=== PATIENT | female | born 1945 | race Two or more races ===

== ENCOUNTER 2023-05-04 20:18 | Inpatient (IN) | payer MEDICARE, OTHER ==
[~2023-05-04] VITALS: Ht 154.9 cm; Wt 62.7 kg
[2023-05-04 21:21] VITALS: O2SAT 97
[2023-05-04 21:22] LABS: Basophils # (auto) 0 10 ^3/uL (0-0.2); Basophils % (auto) 0.4 % (0.0-2.0); Eosinophils # (auto) 0.1 10 ^3/uL (0-0.8); Eosinophils % (auto) 1.4 % (0.0-7.0); Hematocrit 39.9 % (36.0-46.0); Hemoglobin 13.3 g/dL (12.2-16.2); Lymphocytes # (auto) 1.6 10 ^3/uL (0.4-5.4); Lymphocytes % (auto) 16.6 % (10.0-50.0); Mean Corpuscular Hemoglobin 31.2 pg (28.0-32.0); Mean Corpuscular Hgb Conc. 33.4 g/dL (32.0-36.0); Mean Corpuscular Volume 93.3 fL (80.0-100.0); Monocytes # (auto) 0.3 10 ^3/uL (0-1.3); Monocytes % (auto) 3.4 % (0.0-12.0); Neutrophils # (auto) 7.8 10 ^3/uL (1.6-8.6); Neutrophils % (auto) 78.2 % (37.0-80.0); Nucleated Red Blood Cells % 0.1 %; Red Blood Cells 4.27 10^6/uL (4.0-5.20); Red Cell Distribution Width 13.7 % (11.8-14.3); White Blood Cell 9.9 10^3/uL (4.4-10.8)
[2023-05-04 21:26] LABS: Acetaminophen < 2.0 UG/ML (10.0-20.0); Alanine Aminotransferase 47 U/L (7-40); Albumin 3.6 g/dL (3.2-4.8); Alkaline Phosphatase 86 U/L (46-116); Anion Gap 6 (5-15); Aspartate Aminotransferase 34 U/L (13-40); Blood Alcohol 4.8 mg/dL (<10); Blood Urea Nitrogen 24 mg/dL (9-23); Calcium 8.5 mg/dL (8.7-10.4); Carbon Dioxide 26 mmol/L (20-30); Chloride 109 mmol/L (98-107); Glucose 161 mg/dL (74-106); Potassium 3.5 mmol/L (3.5-5.1); Sodium 141 mmol/L (136-145)
[2023-05-04 21:27] LABS: Bilirubin, Total 0.5 mg/dL (0.2-1.0); Total Protein 6.3 g/dL (5.7-8.2)
[2023-05-04] MEDS ORDERED: SODIUM CHLORIDE 0.9% 1,000 ML IV ONE (21:45)
[2023-05-04] MEDS ORDERED: VANCOMYCIN PER PHARMACY 0 MG IV SCH (21:45)
[2023-05-04 21:51] LABS: Salicylate < 3.0 mg/dL (2.8-20.0)
[2023-05-04] MEDS ORDERED: VANCOMYCIN 1GM/250ML 250 ML IV ONE (22:00)
[2023-05-04 22:42] LABS: INR 1.12 (0.9-1.15); Partial Thromboplastin Time 29.4 SEC (24.5-34.5); Prothrombin Time 11.7 sec (9.3-11.8)
[2023-05-04 23:59] LABS: Amphetamine Screen, Urine Neg (NEGATIVE); Barbiturate Scree,Urine Neg (NEGATIVE); Benzodiazephine Screen, Urine Neg (NEGATIVE); Cannabinoid Screen, Urine Neg (NEGATIVE); Cocaine Screen, Urine Neg (NEGATIVE); Opiate Scree,Urine Neg (NEGATIVE); Phencyclidine Screen, Urine Neg (NEGATIVE)
[2023-05-05] MEDS ORDERED: PIPERACILLIN-TAZOB 3.375GM 100 ML IV ONE (00:28)
[2023-05-05 00:41] LABS: Urine Bacteria FEW /hpf (None Seen); Urine Blood Negative /uL (Negative); Urine Clarity HAZY (Clear); Urine Color Yellow (Yellow); Urine Hyaline Cast FEW /lpf (0 - 2); Urine Mucus FEW (None Seen); Urine Protein, UAD 1+ (Negative); Urine Urobilinogen Normal (Negative); Urine WBC 166 /hpf (0 - 5); Urine WBC Clumps PRESENT /hpf (None Seen); Urine pH 5.5 (5.0-8.0)
[2023-05-05] MEDS ORDERED: ALBUMIN 25% 100 ML IV ONE ×2 (03:00)
[2023-05-05] MEDS ORDERED: SODIUM CHLORIDE 0.9% 2,000 ML IV ONE (03:00)
[2023-05-05] MEDS ORDERED: SODIUM CHLORIDE 0.9% 1,000 ML IV ONE (03:00)
[2023-05-05] MEDS ORDERED: ACETAMINOPHEN 325 MG TAB PO PRN (04:00)
[2023-05-05] MEDS ORDERED: DOCUSATE SOD 100 MG CAP PO PRN (04:00)
[2023-05-05] MEDS ORDERED: HYDROcodone-ACET 5/325MG TAB PO PRN (04:00)
[2023-05-05] MEDS ORDERED: ONDANSETRON HCL 4 MG/2 ML VIAL IV PRN (04:00)
[2023-05-05] MEDS ORDERED: NITROGLYCERIN 0.4 MG SL TAB SL PRN (06:15)
[2023-05-05] MEDS ORDERED: MORPHINE SULFATE INJ 2 MG/ml SYRG IV PRN (06:15)
[2023-05-05 09:09] VITALS: PULSE 67; RESP 20; O2SAT 96
[2023-05-05] MEDS: HEPARIN SODIUM (PORCINE) 5000 UNITS/ML 1ML VIAL SC SCH ×2 (10:54→22:16)
[2023-05-05] MEDS ORDERED: cefTRIAXone 1GM/50ML D5W 50 ML IV ONE (12:00)
[2023-05-05] MEDS ORDERED: LORazepam 2MG/ML-1ML VIAL ONE (19:10)
[2023-05-05] MEDS ORDERED: LORazepam 2MG/ML-1ML VIAL IM ONE (19:15)
[2023-05-05 19:34] VITALS: PULSE 84; RESP 11; O2SAT 91
[2023-05-05] MEDS ORDERED: PIPERACILLIN-TAZOB 3.375GM 100 ML IV SCH (23:00)
[2023-05-06] MEDS ORDERED: LORazepam 2MG/ML-1ML VIAL IV PRN (03:00)
[2023-05-06 06:16] LABS: Basophils # (auto) 0 10 ^3/uL (0-0.2); Basophils % (auto) 0.2 % (0.0-2.0); Eosinophils # (auto) 0.2 10 ^3/uL (0-0.8); Eosinophils % (auto) 1.9 % (0.0-7.0); Hematocrit 37.2 % (36.0-46.0); Hemoglobin 12.5 g/dL (12.2-16.2); Lymphocytes # (auto) 1.7 10 ^3/uL (0.4-5.4); Lymphocytes % (auto) 17.8 % (10.0-50.0); Mean Corpuscular Hemoglobin 31.1 pg (28.0-32.0); Mean Corpuscular Hgb Conc. 33.5 g/dL (32.0-36.0); Mean Corpuscular Volume 92.9 fL (80.0-100.0); Monocytes # (auto) 0.5 10 ^3/uL (0-1.3); Monocytes % (auto) 5.7 % (0.0-12.0); Neutrophils # (auto) 6.9 10 ^3/uL (1.6-8.6); Neutrophils % (auto) 74.4 % (37.0-80.0); Red Blood Cells 4.01 10^6/uL (4.0-5.20); Red Cell Distribution Width 13.6 % (11.8-14.3); White Blood Cell 9.3 10^3/uL (4.4-10.8)
[2023-05-06 07:23] LABS: Alanine Aminotransferase 38 U/L (7-40); Alkaline Phosphatase 81 U/L (46-116); Anion Gap 6 (5-15); Aspartate Aminotransferase 31 U/L (13-40); BUN/Creatinine Ratio 14.3 (10.0-20.0); Bilirubin, Total 0.6 mg/dL (0.2-1.0); Blood Urea Nitrogen 16 mg/dL (9-23); Calcium 8.9 mg/dL (8.7-10.4); Carbon Dioxide 27 mmol/L (20-30); Chloride 108 mmol/L (98-107); Glucose 72 mg/dL (74-106); Potassium 3.3 mmol/L (3.5-5.1); Sodium 141 mmol/L (136-145); Total Protein 6.7 g/dL (5.7-8.2)
[2023-05-06 07:30] VITALS: RESP 20; O2SAT 95
[2023-05-06] MEDS ORDERED: POTASSIUM CHL 20 Meq TABLET PO ONE (08:30)
[2023-05-06] MEDS: cefTRIAXone 1GM/50ML D5W 50 ML IV SCH (09:00)
[2023-05-06] MEDS: HEPARIN SODIUM (PORCINE) 5000 UNITS/ML 1ML VIAL SC SCH ×2 (10:27→22:18)
[2023-05-06 15:15] VITALS: BP 155/95; PULSE 82; RESP 18; TEMP 98.1
[2023-05-06 22:00] VITALS: BP 114/55; PULSE 70; RESP 16; TEMP 97.5; O2SAT 94
[2023-05-06] MEDS: DONEPEZIL HYDROCHLORIDE 5 MG TAB PO SCH (22:00)
[2023-05-07 05:00] VITALS: BP 103/45; PULSE 72; RESP 16; TEMP 97.8; O2SAT 95
[2023-05-07 09:00] VITALS: BP 99/66; PULSE 81; RESP 18; TEMP 98; O2SAT 94
[2023-05-07] MEDS: cefTRIAXone 1GM/50ML D5W 50 ML IV SCH (09:11)
[2023-05-07] MEDS: HEPARIN SODIUM (PORCINE) 5000 UNITS/ML 1ML VIAL SC SCH ×2 (09:16→22:04)
[2023-05-07 13:00] VITALS: BP 140/71; PULSE 71; RESP 18; TEMP 98.1; O2SAT 96
[2023-05-07 17:00] VITALS: BP 143/69; PULSE 79; RESP 16; TEMP 98.3; O2SAT 93
[2023-05-07] MEDS ORDERED: POTASSIUM CHL 20 Meq TABLET PO ONE (21:30)
[2023-05-07] MEDS: DONEPEZIL HYDROCHLORIDE 5 MG TAB PO SCH (22:03)
[2023-05-07] MEDS: ATORVASTATIN 20 MG TAB PO SCH (22:04)
[2023-05-07] MEDS: SODIUM CHLORIDE 0.9% 1,000 ML IV SCH (22:05)
[2023-05-07 22:59] VITALS: BP 124/79; PULSE 76; RESP 16; TEMP 97.9; O2SAT 93
[2023-05-08 04:51] VITALS: BP 132/76; PULSE 83; RESP 18; TEMP 97.8; O2SAT 93
[2023-05-08 06:24] LABS: Basophils # (auto) 0 10 ^3/uL (0-0.2); Basophils % (auto) 0.3 % (0.0-2.0); Eosinophils # (auto) 0.2 10 ^3/uL (0-0.8); Eosinophils % (auto) 2.5 % (0.0-7.0); Hemoglobin 13.1 g/dL (12.2-16.2); Lymphocytes # (auto) 1.3 10 ^3/uL (0.4-5.4); Lymphocytes % (auto) 14.6 % (10.0-50.0); Mean Corpuscular Hemoglobin 31.5 pg (28.0-32.0); Mean Corpuscular Hgb Conc. 34.4 g/dL (32.0-36.0); Mean Corpuscular Volume 91.6 fL (80.0-100.0); Monocytes # (auto) 0.4 10 ^3/uL (0-1.3); Monocytes % (auto) 4.8 % (0.0-12.0); Neutrophils # (auto) 6.8 10 ^3/uL (1.6-8.6); Neutrophils % (auto) 77.8 % (37.0-80.0); Red Blood Cells 4.14 10^6/uL (4.0-5.20); White Blood Cell 8.8 10^3/uL (4.4-10.8)
[2023-05-08 06:26] LABS: Chloride 108 mmol/L (98-107); Potassium 3.8 mmol/L (3.5-5.1); Sodium 141 mmol/L (136-145)
[2023-05-08 06:27] LABS: Anion Gap 8 (5-15); Carbon Dioxide 25 mmol/L (20-30)
[2023-05-08 06:32] LABS: Blood Urea Nitrogen 19 mg/dL (9-23); Glucose 73 mg/dL (74-106); Triglycerides 117 mg/dL (< 150)
[2023-05-08 06:33] LABS: LDL Cholesterol 177 mg/dL (< 100)
[2023-05-08 06:35] LABS: Cholesterol 241 mg/dL (< 200); HDL Cholesterol 58 mg/dL (40-59)
[2023-05-08 06:51] LABS: Urine Bacteria NONE SEEN /hpf (None Seen); Urine Blood TRACE /uL (Negative); Urine Clarity Clear (Clear); Urine Color Yellow (Yellow); Urine Hyaline Cast FEW /lpf (0 - 2); Urine Mucus FEW (None Seen); Urine Protein, UAD 1+ (Negative); Urine Specific Gravity 1.023 (1.001-1.035); Urine Urobilinogen Normal (Negative); Urine WBC 7 /hpf (0 - 5); Urine pH 5.5 (5.0-8.0)
[2023-05-08 09:00] VITALS: BP 120/75; PULSE 79; RESP 16; TEMP 97.4; O2SAT 94
[2023-05-08] MEDS: cefTRIAXone 1GM/50ML D5W 50 ML IV SCH (09:24)
[2023-05-08] MEDS: HEPARIN SODIUM (PORCINE) 5000 UNITS/ML 1ML VIAL SC SCH ×2 (09:31→23:31)
[2023-05-08 13:00] VITALS: BP 141/81; PULSE 83; RESP 19; TEMP 97.4; O2SAT 94
[2023-05-08] MEDS: LEVOTHYROXINE SODIUM 50 MCG TAB PO SCH (13:30)
[2023-05-08 17:00] VITALS: BP 150/79; PULSE 84; RESP 16; TEMP 97.5; O2SAT 94
[2023-05-08] MEDS: SODIUM CHLORIDE 0.9% 1,000 ML IV SCH (17:30)
[2023-05-08] MEDS ORDERED: LORazepam 2MG/ML-1ML VIAL IV PRN (20:30)
[2023-05-08 21:45] VITALS: BP 124/75; PULSE 76; RESP 19; TEMP 98.2; O2SAT 91
[2023-05-08] MEDS: DONEPEZIL HYDROCHLORIDE 5 MG TAB PO SCH (21:51)
[2023-05-08] MEDS: ATORVASTATIN 20 MG TAB PO SCH (21:51)
[2023-05-08 22:22] LABS: Folate (Folic Acid) 7.98 ng/mL (>5.38)
[2023-05-09 04:31] VITALS: BP 148/68; PULSE 75; RESP 18; TEMP 98.6; O2SAT 98
[2023-05-09 06:10] LABS: Anion Gap 9 (5-15); Carbon Dioxide 24 mmol/L (20-30); Chloride 107 mmol/L (98-107); Potassium 3.8 mmol/L (3.5-5.1); Sodium 140 mmol/L (136-145)
[2023-05-09 06:12] LABS: Calcium 9.1 mg/dL (8.5-10.1)
[2023-05-09 06:16] LABS: Blood Urea Nitrogen 18 mg/dL (9-23); Glucose 93 mg/dL (74-106)
[2023-05-09] MEDS: LEVOTHYROXINE SODIUM 50 MCG TAB PO SCH (06:21)
[2023-05-09 09:00] VITALS: BP 136/90; PULSE 69; RESP 18; TEMP 97.5; O2SAT 96
[2023-05-09] MEDS: cefTRIAXone 1GM/50ML D5W 50 ML IV SCH (09:17)
[2023-05-09] MEDS: LISINOPRIL 5 MG TAB PO SCH (09:18)
[2023-05-09] MEDS: HEPARIN SODIUM (PORCINE) 5000 UNITS/ML 1ML VIAL SC SCH ×2 (09:30→21:03)
[2023-05-09 13:00] VITALS: BP 141/90; PULSE 78; RESP 14; TEMP 97.8; O2SAT 95
[2023-05-09] MEDS: SODIUM CHLORIDE 0.9% 1,000 ML IV SCH (13:04)
[2023-05-09 17:00] VITALS: BP 158/77; PULSE 107; RESP 18; TEMP 98; O2SAT 92
[2023-05-09] MEDS: DONEPEZIL HYDROCHLORIDE 5 MG TAB PO SCH (21:01)
[2023-05-09] MEDS: ATORVASTATIN 20 MG TAB PO SCH (21:01)
[2023-05-09 22:00] VITALS: BP 128/76; PULSE 68; RESP 18; TEMP 97.3; O2SAT 96
[2023-05-10 05:00] VITALS: BP 152/89; PULSE 68; RESP 19; TEMP 97.2; O2SAT 95
[2023-05-10] MEDS: LEVOTHYROXINE SODIUM 50 MCG TAB PO SCH (06:04)
[2023-05-10 08:00] VITALS: BP 147/99; PULSE 73; RESP 16; TEMP 98
[2023-05-10 09:00] VITALS: BP 147/99; PULSE 73; RESP 16; TEMP 98; O2SAT 96
[2023-05-10] MEDS: SODIUM CHLORIDE 0.9% 1,000 ML IV SCH (09:30)
[2023-05-10] MEDS: cefTRIAXone 1GM/50ML D5W 50 ML IV SCH (10:09)
[2023-05-10] MEDS: LISINOPRIL 5 MG TAB PO SCH (10:11)
[2023-05-10] MEDS: HEPARIN SODIUM (PORCINE) 5000 UNITS/ML 1ML VIAL SC SCH ×2 (10:15→22:00)
[2023-05-10 13:00] VITALS: BP 155/102; PULSE 68; RESP 16; TEMP 98; O2SAT 93
[2023-05-10 17:00] VITALS: BP 149/89; PULSE 76; RESP 16; TEMP 98.9; O2SAT 95
[2023-05-10] MEDS: DONEPEZIL HYDROCHLORIDE 5 MG TAB PO SCH (21:58)
[2023-05-10] MEDS: ATORVASTATIN 20 MG TAB PO SCH (21:58)
[2023-05-10 22:00] VITALS: BP 157/94; PULSE 76; RESP 19; TEMP 97.6; O2SAT 95
[2023-05-11 05:11] VITALS: BP 134/84; PULSE 73; RESP 17; TEMP 97.5; O2SAT 94
[2023-05-11] MEDS: SODIUM CHLORIDE 0.9% 1,000 ML IV SCH (05:30)
[2023-05-11] MEDS: LEVOTHYROXINE SODIUM 50 MCG TAB PO SCH (07:00)
[2023-05-11 08:00] VITALS: RESP 16; O2SAT 95
[2023-05-11] MEDS: cefTRIAXone 1GM/50ML D5W 50 ML IV SCH (09:00)
[2023-05-11] MEDS: LISINOPRIL 5 MG TAB PO SCH (10:10)
[2023-05-11] MEDS: HEPARIN SODIUM (PORCINE) 5000 UNITS/ML 1ML VIAL SC SCH (10:14)
[2023-05-11 10:33] VITALS: BP 153/80; PULSE 72; RESP 18; TEMP 97.6; O2SAT 95
[2023-05-11 12:59] VITALS: BP 156/87; PULSE 74; RESP 18; TEMP 97.8; O2SAT 95
[2023-05-11] MEDS ORDERED: DONE10TA9 PO (14:40)
[2023-05-11] MEDS ORDERED: CEPH500C PO (14:40)
[2023-05-11] MEDS ORDERED: LISI-275 PO (14:40)
[2023-05-11] MEDS ORDERED: LEV50T PO (14:40)
[2023-05-11] MEDS ORDERED: ATOR10TA52 PO (14:40)
[2023-05-11 15:18] VITALS: BP 156/87; PULSE 74; RESP 18; TEMP 97.8; O2SAT 95
[2023-05-11 17:30] VITALS: BP 154/80; PULSE 83; RESP 19; TEMP 97.5; O2SAT 95
[2023-05-12] MEDS ORDERED: LISINOPRIL 5 MG TAB PO SCH (10:00)
== END 2023-05-11 17:19 | disposition home or self-care (01) | DRG 71 ==
LOC: EDBD 20:18 → ER 20:18 → TELE 05-05 06:07 → TELE-EAST 05-06 15:11 → EAST 05-06 17:50
PROVIDERS: ADMIT Nurse Practitioner Family; ATTEND Family Medicine
DX: G93.41 Metabolic encephalopathy (principal); N17.9 Acute kidney failure, unspecified; N39.0 Urinary tract infection, site not specified; R57.9 Shock, unspecified; F03.90 Unspecified dementia, unspecified severity, without behavioral disturbance, psychotic disturbance, mood disturbance, and anxiety; E87.6 Hypokalemia; L08.9 Local infection of the skin and subcutaneous tissue, unspecified; R73.9 Hyperglycemia, unspecified; E78.5 Hyperlipidemia, unspecified; B96.20 Unspecified Escherichia coli [E. coli] as the cause of diseases classified elsewhere; R26.2 Difficulty in walking, not elsewhere classified; R68.0 Hypothermia, not associated with low environmental temperature; E03.9 Hypothyroidism, unspecified; I10 Essential (primary) hypertension; Z79.899 Other long term (current) drug therapy; Z90.710 Acquired absence of both cervix and uterus
CPT/HCPCS: 36415; 36600; 70450; 70551; 71045; 80048; 80053; 80061; 80202; 80307; 80320; 80329; 81001; 82553; 82607; 82746; 82805; 83036; 83605; 83735; 83880; 84443; 84450; 84484; 85025; 85610; 85730; 87040; 87086; 87088; 87186; 93005; 93306; 95819; 97110; 97116; 97163; G0378; J0696; J2543; P9047